=== PATIENT | female | born 1955 | race Caucasian/White ===

== ENCOUNTER 2018-08-04 13:14 | Inpatient (IN) ==
[2018-08-04] MEDS ORDERED: MethylPREDNISolone Sod Succinate Inj 125 MG/2 ML Vial IV.PUSH ONE (13:31)
--- NOTE | 2018-08-04 13:36 | ED ---
HPI General Chief Complaint: Neuro Symptoms/Deficit Stated Complaint: neuro symptoms x 2 days Time Seen by Provider: 08/04/18 13:25 Source: patient Mode of arrival: ambulatory Limitations: no limitations History of Present Illness HPI Narrative: Back pain after lifting food trays Complaint of chin numbness Complaint: Reports back pain Onset (ago): day(s) Duration: Reports constant Similar Symptoms Previously: Yes Location: Reports lumbar spine Severity: moderate Quality: Reports dull Radiation: Reports left leg Relieving factors: immobilization Exacerbating factors: movement Context: Reports while lifting Associated symptoms: Reports denies other symptoms; Denies weakness, numbness, difficulty walking, loss of sensation in lower extremities, increased urinary urgency and urinary incontinence Treatments prior to arrival: Reports other medications Related Data Home Medications Medication Instructions Recorded Confirmed prednisone 5 mg PO PER PKG DIR 08/04/18 08/04/18 Allergies Allergy/AdvReac Type Severity Reaction Status Date / Time No Known Allergies Allergy Verified 08/04/18 13:17 Review of Systems ROS: all other systems reviewed are negative Neurologic Denies vertigo, Denies dizziness, Denies headache(s) and Denies weakness PMFSH Medical History Medical History Vertigo (Acute) Surgical History Surgical History Hx of appendectomy (Acute) Social History Social History Substance History: Past History Second Hand Smoke Exposure: No Smoking Status: Never smoker How Often Do You Have a Drink Containing Alcohol: Monthly or less Recent Travel in [facility] within the Last 8 Weeks: No Recent Out of Country Travel within the Last 8 Weeks: No Exam Narrative Exam Narrative: NONTOXIC Nontender midline CTL EOMI NO JVD Difference in sensation right chin and left chin No gross abnormality face Normal sensory bilateral extremities NON LABORED RESPIRATIONS REGULAR RHYTHM SOFT NON TENDER, no pulsatile mass No rebound or guarding No CVA tenderness PELVIS STABLE FROM EXTREMITIES Tender left piriformis NO LOWER EXTREMITY EDEMA FACIAL SYMMETRY No pronator drift, equal buzzle buffer strength STEADY GAIT, CLEAR SENTENCES AAOX3 Course Reevaluation(s) Reevaluation #1: Updated patient diagnostic test, lytic lesions Family history of pancreatic/liver cancer WBC appropriate patient was taking steroids 1610 discussed with Scott High MD to admit/assume care No signs of acute airway compromise Follow-up oncology Time: 15:15 Initial Documented Vital Signs Temperature 99.1 F 08/04/18 13:17 Pulse Rate 96 H 08/04/18 13:17 Respiratory Rate 16 08/04/18 13:17 Blood Pressure 162/77 H 08/04/18 13:17 Pulse Oximetry 96 08/04/18 13:17 Last Documented Vital Signs Temperature 99.1 F 08/04/18 13:17 Pulse Rate 78 08/04/18 15:48 Respiratory Rate 18 08/04/18 15:48 Blood Pressure 176/84 H 08/04/18 15:48 Pulse Oximetry 98 08/04/18 15:48 Medical Decision Making MDM Narrative Medical Screen Exam Complete: Yes Emergency Medical Condition: Yes Lab Data Result diagrams: 08/04/18 13:40 08/04/18 13:40 Lab Results 08/04/18 08/04/18 Range/Units 13:40 13:40 CBC w Diff Auto diff final WBC 15.3 H (4.0-11.0) th/mm3 RBC 3.25 L (4.00-5.30) mil/mm3 Hgb 10.9 L (11.6-15.3) gm/dL Hct 32.0 L (35.0-46.0) % MCV 98.4 (80.0-100.0) fL MCH 33.6 (27.0-34.0) pg MCHC 34.1 (32.0-36.0) % RDW 13.0 (11.6-17.2) % Plt Count 276 (150-450) th/mm3 MPV 7.0 (7.0-11.0) fL Neut % (Auto) 77.2 H (16.0-70.0) % Lymph % (Auto) 14.8 (9.0-44.0) % [place] % (Auto) 7.5 (0.0-8.0) % Eos % (Auto) 0.1 (0.0-4.0) % Baso % (Auto) 0.4 (0.0-2.0) % Neut # (Auto) 11.8 H (1.8-7.7) th/mm3 Lymph # (Auto) 2.3 (1.0-4.8) th/mm3 [place] # (Auto) 1.1 H (0.0-0.9) th/mm3 Eos # (Auto) 0.0 (0.0-0.4) th/mm3 Baso # (Auto) 0.1 (0.0-0.2) th/mm3 WBC Differential . Differential Comment . Sodium 136 (136-145) meq/L Potassium 3.6 (3.5-5.1) meq/L Chloride 98 (98-107) meq/L Carbon Dioxide 31.3 (21.0-32.0) meq/L Anion Gap 7 (5-15) meq/L BUN 20 H (7-18) mg/dL Creatinine 1.10 H (0.50-1.00) mg/dL Estimated GFR 50 L (>89) mL/min Random Glucose 161 H (74-106) mg/dL Calcium 12.2 H* (8.5-10.1) mg/dL Calcium Adj for Albumin 12.2 H* (8.5-10.1) mg/dL Albumin 4.0 (3.4-5.0) g/dL Imaging Data Radiologist's impression: Lumbar Spine CT 08/04/18 13:32 CONCLUSION: 1. Widespread lytic bony destructive change in the lower thoracic spine, lumbar spine and sacrum and pelvis. There are associated soft tissue masses on the right side at L2 and S1 measuring up to 2.5 cm in diameter which may be impinging on the adjacent nerve roots. Head CT 08/04/18 13:37 CONCLUSION: 1. Numerous lytic calvarial lesions most characteristic of myeloma or metastatic disease. Larger lytic lesion in the right frontal bone is associated with a soft tissue mass measuring about 12 mm extending into the extra-axial space on the right but without significant mass effect. . . Discharge Plan Discharge Disposition Patient Disposition: ED Admit(ED Internal Use Only) Discharge Condition Condition: Stable Discharge Details Diagnosis: Metastatic cancer to bone, Hypercalcemia Physicians Team ED Provider: Dre Farmer Primary Care Provider: Primary Care Kaur Nova Rxs /Orders / Referrals /Forms Prescriptions: No Action prednisone 5 mg Tablets,Dose Pack 5 mg PO PER PKG DIR RF: 0 Discharge Interventions Interventions: Vital Signs Last Done: 08/04/18 15:48 Status ED Status: Pending Admission
[2018-08-04 13:55] LABS: Baso # (Auto) 0.1 th/mm3 (0.0-0.2); Baso % (Auto) 0.4 % (0.0-2.0); Eos % (Auto) 0.1 % (0.0-4.0); Hemoglobin 10.9 gm/dL (11.6-15.3); Lymph # (Auto) 2.3 th/mm3 (1.0-4.8); Lymph % (Auto) 14.8 % (9.0-44.0); Mean Corpuscular HGB Conc 34.1 % (32.0-36.0); Mean Corpuscular Hemoglobin 33.6 pg (27.0-34.0); Mean Corpuscular Volume 98.4 fL (80.0-100.0); Mono # (Auto) 1.1 th/mm3 (0.0-0.9); Mono % (Auto) 7.5 % (0.0-8.0); Neut # (Auto) 11.8 th/mm3 (1.8-7.7); Neut % (Auto) 77.2 % (16.0-70.0); Platelet Count 276 th/mm3 (150-450); Red Blood Count 3.25 mil/mm3 (4.00-5.30); White Blood Count 15.3 th/mm3 (4.0-11.0)
[2018-08-04 14:03] LABS: Potassium 3.6 meq/L (3.5-5.1)
[2018-08-04 14:12] LABS: Calcium 12.2 mg/dL (8.5-10.1); Carbon Dioxide 31.3 meq/L (21.0-32.0)
[2018-08-04] MEDS ORDERED: Furosemide 40 MG Tablet PO ONE (14:30)
[2018-08-04] MEDS ORDERED: Sod Chloride 0.9% Inj 1,000 ML IV.SIG SCH (14:30)
[2018-08-04 14:35] LABS: Calcium-Albumin Corrected 12.2 mg/dL (8.5-10.1)
--- NOTE | 2018-08-04 15:16 | CT ---
EXAM DATE: 08/04/2018 3:09 PM EST AGE/SEX: 63 years / Female INDICATIONS: Right chin and right leg numbness. CLINICAL DATA: This is the patient's initial encounter. Patient reports that signs and symptoms have been present for 2 days and indicates a pain score of 7/10. MEDICAL/SURGICAL HISTORY: None. None. RADIATION DOSE: 57.15 CTDI (mGy) COMPARISON: No prior exams available for comparison. TECHNIQUE: CT of the head without contrast. Using automated exposure control and adjustment of the mA and/or kV according to patient size, radiation dose was kept as low as reasonably achievable to ob tain optimal diagnostic quality images. DICOM format image data is available electronically for revi ew and comparison. FINDINGS: Cerebrum: The ventricles are normal for age. 2.4 cm lytic lesion in right frontal calvarium is assoc iated with a 12 mm extra-axial mass in the right frontal region. No other intracranial masses. Posterior Fossa: The cerebellum and brainstem are intact. The 4th ventricle is midline. The cerebe llopontine angle is unremarkable. Extracranial: The visualized portion of the orbits is intact. Skull: Innumerable lytic lesions in the calvarium. Differential diagnosis is most likely myeloma or metastatic bone disease.. CONCLUSION: 1. Numerous lytic calvarial lesions most characteristic of myeloma or metastatic disease. Larger lyt ic lesion in the right frontal bone is associated with a soft tissue mass measuring about 12 mm exten ding into the extra-axial space on the right but without significant mass effect. . . Electronically signed by: Dre Navarrete MD Board Certified Radiologist 08/04/2018 3:15 PM EST
--- NOTE | 2018-08-04 15:44 | CT ---
EXAM DATE: 08/04/2018 3:23 PM EST AGE/SEX: 63 years / Female INDICATIONS: Right chin and right leg numbness. CLINICAL DATA: This is the patient's initial encounter. Patient reports that signs and symptoms have been present for 2 days and indicates a pain score of 7/10. MEDICAL/SURGICAL HISTORY: None. None. RADIATION DOSE: 20.71 CTDI (mGy) COMPARISON: No prior exams available for comparison. TECHNIQUE: Contiguous axial images were acquired with a multirow detector CT scanner without contras t. Multiplanar reconstructions in the sagittal and coronal plane were also performed. Using automate d exposure control and adjustment of the mA and/or kV according to patient size, radiation dose was k ept as low as reasonably achievable to obtain optimal diagnostic quality images. DICOM format image data is available electronically for review and comparison. FINDINGS: There is widespread multifocal lytic destruction of bone in the lower thoracic and lumbar spine. On t he right side of L2 1 lytic mass is associated with a 2.5 cm soft tissue mass which results in right lateral recess and right foraminal stenosis probably impinging on the right L2 nerve root. Bony destr uction in the right sacral ala is associated with a 2.5 cm soft tissue mass which may be impinging on a right sacral nerve root. At this point no pathologic fractures seen. The lytic changes extending into the posterior elements n o discrete disc protrusions are identified. CONCLUSION: 1. Widespread lytic bony destructive change in the lower thoracic spine, lumbar spine and sacrum and pelvis. There are associated soft tissue masses on the right side at L2 and S1 measuring up to 2.5 c m in diameter which may be impinging on the adjacent nerve roots. Electronically signed by: Dre Navarrete MD Board Certified Radiologist 08/04/2018 3:43 PM EST
[2018-08-04] MEDS ORDERED: Acetaminophen 325 MG Tablet PO PRN (16:18)
[2018-08-04] MEDS ORDERED: Diatrizoate Meglum/Diatrizoate Sod Liq 9 ML UDC PO ONE (16:26)
[2018-08-04] MEDS ORDERED: Diatrizoate Meglum/Diatrizoate Sod Liq 9 ML UDC ONE (16:42)
[2018-08-04] MEDS: Sod Chloride 0.9% Inj 1,000 ML IV.CONT SCH (16:51)
--- NOTE | 2018-08-04 19:29 | P.HPIM ---
History of Present Illness Primary Care Physician: No Primary Care Physician Chief Complaint: Back Pain, Weakness History of Present Illness: Mrs. Singleton is a 63-year-old female. She came in the hospital secondary to back pain and weakness. She noticed back pain when she was lifting food trays. Lab work shows hypercalcemia. Imaging has been obtained of the back and the brain. She has evidence of metastatic disease to the lumbar spine and the brain. Neoplastic etiology is likely the cause for her hypercalcemia. Patient at baseline only has chronic vertigo. No other known medical problems. She does report that her father had liver cancer and her mother had pancreatic cancer. She has no past history of smoking. She did have some smoke exposure as a child because her parents smoked. She does report that she has drank alcohol heavily in the past. She is not been drinking alcohol since June 18, 2018. Before this she was drinking about 1 bottle of wine daily. When we discussed her bowel movements she reports that she has been suffering with constipation and harder stools and had not had this problem previously. This could represent colon masses in etiology. Further imaging is pending. No complaints of pain. No other complaints tonight. Inpatient Certification Inpatient Certification: I certify that the inpatient services were ordered in accordance with Medicare regulations governing the order. This includes certification that hospital inpatient services are reasonable and necessary and in the case of services not specified as inpatient-only under 42 CFR 419.22(n), that they are appropriately provided as inpatient services in accordance to with the 2-midnight benchmark under 43 CFR 412.3(e) Estimated Total Length of Stay (Days): 5 Plans for Post Hospital Care: Not yet determined Review of Systems Constitutional: No fevers, no chills no night sweats, fatigue, weakness Eyes: No eye pain, no blurry vision, no loss of vision ENT: No sore throat, no ear pain, no rhinorrhea Cardiovascular: No chest pain, no tachycardia, no palpitations, no syncope Respiratory: No wheezing, no cough, no shortness of breath Gastrointestinal: No abdominal pain, no black tarry stools, no bright red blood per rectum, no vomiting, no diarrhea, constipation Musculoskeletal: No joint pain, no muscle cramps, no stiffness, back pain Integumentary: No rash, no ulcers, no drainage Neurologic: No sensory loss, no loss of motor function, no dizziness Psychiatric: No behavioral changes, no hallucinations, no suicidal ideations PMFSH Medical History Medical History Vertigo (Acute) Surgical History Surgical History Hx of appendectomy (Acute) Family History Family History Father Liver cancer Mother Pancreatic cancer Social History Social History Substance History: No History of Abuse Second Hand Smoke Exposure: Yes Smoking Status: Never smoker How Often Do You Have a Drink Containing Alcohol: 4 or more times a week Recent Travel in [place] within the Last 8 Weeks: No Recent Out of Country Travel within the Last 8 Weeks: No Substance Abuse Detail Alcohol: Substance Use Status: Early Remission Route Used Substance Abuse: By Mouth Reason for Use: Calm Down Immunization History Tetanus Immunization: Unsure Hx Influenza Vaccine This Season: No Medications and Allergies Allergies Allergy/AdvReac Type Severity Reaction Status Date / Time No Known Allergies Allergy Verified 08/04/18 13:17 Home Medications Medication Instructions Recorded Confirmed Type prednisone 5 mg PO PER PKG DIR 08/04/18 08/04/18 History Active Medications: Active Medications Acetaminophen (Tylenol) 650 mg PO Q4H PRN PRN Reason: Temp > 100.4 Hydrocodone Bitart/Acetaminophen ([place] 5/325) 1 tab PO Q4H PRN PRN Reason: Pain 3 to 6 Hydrocodone Bitart/Acetaminophen ([place] 10/325) 1 tab PO Q4H PRN PRN Reason: Pain 7 to 10 Al Hydroxide/Mg Hydroxide (Milk Of Magnesia Liq) 30 ml PO Q12H PRN PRN Reason: Mild Constipation Sodium Chloride (Ns Inj) 1,000 mls @ 100 mls/hr IV.CONT .Q10H TREE Last Infusion: 08/04/18 17:40 Dose: 100 mls/hr Ondansetron HCl (Zofran Inj) 4 mg IV.PUSH Q6H PRN PRN Reason: NAUSEA OR VOMITING Sodium Chloride (Ns Flush) 2 ml IV.FLUSH BID TREE Sodium Chloride (Ns Flush) 2 ml IV.FLUSH PRN PRN PRN Reason: FLUSH AFTER USING IV ACCESS Physical Exam Vital signs: Vital Signs 08/04/18 13:17 08/04/18 14:10 08/04/18 14:47 Temperature 99.1 F Pulse Rate 96 H 80 76 Respiratory Rate 16 18 18 Blood Pressure 162/77 H 148/79 H 143/80 H Pulse Oximetry 96 98 95 08/04/18 15:48 08/04/18 17:40 Temperature Pulse Rate 78 81 Respiratory Rate 18 18 Blood Pressure 176/84 H 155/75 H Pulse Oximetry 98 96 Intake & Output 08/04/18 08/04/18 08/05/18 06:59 18:59 06:59 Intake Total 1280 / 1280 Balance 1280 / 1280 Weight 85.3 kg Intake: IV 1100 / 1100 NS Inj 1,000 ML @ 100 mls/hr IV 100 / 100 .CONT .Q10H TREE Rx#:[id number] NS Inj 1,000 ML @ 1000 mls/hr 1000 / 1000 IV.SIG BOLUS TREE Rx#:[id number] Oral 180 / 180 Narrative: GENERAL: NAD, A&Ox3 HEAD: Normocephalic. NECK: Supple, trachea midline. No lymphadenopathy. EYES: No scleral icterus. No injection or drainage. CARDIOVASCULAR: Regular rate and rhythm without murmurs, gallops, or rubs. RESPIRATORY: Breath sounds equal bilaterally. No accessory muscle use. GASTROINTESTINAL: Abdomen soft, non-tender, nondistended. MUSCULOSKELETAL: No cyanosis, or edema. SKIN: Warm and dry. NEURO: No focal neurological deficits. Results Labs CBC & Chem 7: 08/04/18 13:40 08/04/18 13:40 Imaging Impressions Lumbar Spine CT 08/04/18 13:32 CONCLUSION: 1. Widespread lytic bony destructive change in the lower thoracic spine, lumbar spine and sacrum and pelvis. There are associated soft tissue masses on the right side at L2 and S1 measuring up to 2.5 cm in diameter which may be impinging on the adjacent nerve roots. Head CT 08/04/18 13:37 CONCLUSION: 1. Numerous lytic calvarial lesions most characteristic of myeloma or metastatic disease. Larger lytic lesion in the right frontal bone is associated with a soft tissue mass measuring about 12 mm extending into the extra-axial space on the right but without significant mass effect. . . Caprini VTE Risk Assessment Caprini VTE Risk Assessment: No/Low Risk (score <= 1) Caprini Risk Assessment Model: Point Value = 1 Point Value = 2 Point Value = 3 Point Value = 5 Age 41-60 Minor surgery BMI > 25 kg/m2 Swollen legs Varicose veins or History of unexplained or recurrent spontaneous Oral contraceptives or hormone replacement Sepsis (< 1 month) Serious lung disease, including pneumonia (< 1 month) Abnormal pulmonary function Acute myocardial infarction Congestive heart failure (< 1 month) History of inflammatory bowel disease Medical patient at bed rest Age 61-74 Arthroscopic surgery Major open surgery (> 45 min) Laparoscopic surgery (> 45 min) Malignancy Confined to bed (> 72 hours) Immobilizing plaster cast Central venous access Age >= 75 History of VTE Family history of VTE Factor V Leiden Prothrombin [id number] Lupus anticoagulant Anticardiolipin antibodies Elevated serum homocysteine Heparin-induced thrombocytopenia Other congenital or acquired thrombophilia Stroke (< 1 month) Elective arthroplasty Hip, pelvis, or leg fracture Acute spinal cord injury (< 1 month) Prophylaxis Regimen: Total Risk Factor Score Risk Level Prophylaxis Regimen 0-1 Low Early ambulation 2 Moderate Order ONE of the following: *Sequential Compression Device (SCD) *Heparin 5000 units SQ BID 3-4 Higher Order ONE of the following medications: *Heparin 5000 units SQ TID *Enoxaparin/Lovenox 40 mg SQ daily (WT < 150 kg, CrCl > 30 mL/min) *Enoxaparin/Lovenox 30 mg SQ daily (WT < 150 kg, CrCl > 10-29 mL/min) *Enoxaparin/Lovenox 30 mg SQ BID (WT < 150 kg, CrCl > 30 mL/min) AND/OR *Sequential Compression Device (SCD) 5 or more Highest Order ONE of the following medications: *Heparin 5000 units SQ TID (Preferred with Epidurals) *Enoxaparin/Lovenox 40 mg SQ daily (WT < 150 kg, CrCl > 30 mL/min) *Enoxaparin/Lovenox 30 mg SQ daily (WT < 150 kg, CrCl > 10-29 mL/min) *Enoxaparin/Lovenox 30 mg SQ BID (WT < 150 kg, CrCl > 30 mL/min) AND *Sequential Compression Device (SCD) Assessment and Plan Plan 63-year-old female admitted secondary to new findings of what appears to be metastatic cancer Severe hypercalcemia May be of neoplastic etiology IV hydration Evaluate PTH Follow calcium levels Suspect metastatic brain cancer Suspect metastatic spine cancer Obtain CT scan of chest, abdomen, pelvis Oncology consult Seek options for tissue sample As needed pain treatments DVT prophylaxis SCDs H&P: Quality VTE Deep Vein Thrombosis/Pulmonary Embolism Present on Admission: No
--- NOTE | 2018-08-04 20:07 | CT ---
EXAM DATE: 08/04/2018 7:52 PM EST AGE/SEX: 63 years / Female INDICATIONS: Evaluate for metastatic disease. Abnormal prior CT done earlier today. CLINICAL DATA: This is the patient's initial encounter. Patient reports that signs and symptoms have been present for 1 day and indicates a pain score of 2/10. MEDICAL/SURGICAL HISTORY: None. Appendectomy. RADIATION DOSE: 11.97 CTDI (mGy) ; Combined studies COMPARISON: No prior exams available for comparison. TECHNIQUE: Multiple contiguous axial images were obtained through the chest during bolus infusion of 92 ml Omnipaque 350 (iohexol) nonionic water-soluble contrast as a single exam dose. Images were obtained in suspended respiration using multiple row detector helical technique. Using automated exp osure control and adjustment of the mA and/or kV according to patient size, radiation dose was kept a s low as reasonably achievable to obtain optimal diagnostic quality images. DICOM format image data is available electronically for review and comparison. FINDINGS: Lungs demonstrate some linear atelectasis or scarring at the bases. There is no mediastinal, hilar or axillary adenopathy. There is widespread bony lytic destructive change in the bony skeleton. Largest lesion in the thoraci c spine is at T10 on the right side with a soft tissue component measures up to 2.9 cm in diameter an d results in at least moderate canal stenosis and mild to moderate cord compression. There is a 2.4 c m soft tissue mass adjacent to a bony destructive lesion in the medial eighth rib with extrapleural m ass present. The distal metastatic lesions present in the sternum. There is a pathologic fracture of a lower right anterior rib. CONCLUSION: 1. Widespread bony metastatic disease or myeloma with a lytic lesion at T10 on the right side result ing in at least moderate canal stenosis and mild to moderate cord compression. 2. No adenopathy or suspicious lung mass identified. Electronically signed by: Dre Navarrete MD Board Certified Radiologist 08/04/2018 8:06 PM EST
--- NOTE | 2018-08-04 20:11 | CT ---
EXAM DATE: 08/04/2018 7:53 PM EST AGE/SEX: 63 years / Female INDICATIONS: Evaluate for metastatic disease. Abnormal prior CT done earlier today. CLINICAL DATA: This is the patient's initial encounter. Patient reports that signs and symptoms have been present for 1 day and indicates a pain score of 2/10. MEDICAL/SURGICAL HISTORY: None. Appendectomy. ORAL CONTRAST: Prescribed oral contrast ingested. RADIATION DOSE: 11.97 CTDI (mGy) ; Combined studies COMPARISON: No prior exams available for comparison. TECHNIQUE: Multiple contiguous axial images were obtained through the abdomen and pelvis following b olus infusion of 92 ml Omnipaque 350 (iohexol) nonionic water-soluble contrast as a cumulative dose for multiple exams. Prescribed oral contrast ingested. Using automated exposure control and adjustm ent of the mA and/or kV according to patient size, radiation dose was kept as low as reasonably achie vable to obtain optimal diagnostic quality images. DICOM format image data is available electronical ly for review and comparison. FINDINGS: There is widespread lytic metastatic disease in the lower thoracic spine, lumbar spine and also invol ving the and bony pelvis. Soft tissue masses in the right sided L2 and S1 may be impinging on the adj acent nerve roots. See lumbar spine CT. Mild fatty liver. No discrete mass identified in the liver, spleen, adrenals, kidneys or pancreas. No calcified gallstones or biliary ductal dilatation. There is no free fluid. No bowel obstruction. No adenopathy. Mild constipation. Lytic lesion also not ed in left femoral head. CONCLUSION: 1. Widespread lytic bone destruction in the skeleton as above characteristic of metastatic disease o r myeloma. Associated soft tissue masses on the right side at L2 and S1 may be impinging on the adjac ent nerve roots. 2. No visceral mass identified within the abdomen and pelvis. Mild constipation. No abdominal or pel hui adenopathy identified. Electronically signed by: Dre Navarrete MD Board Certified Radiologist 08/04/2018 8:09 PM EST
[2018-08-05] MEDS: Sod Chloride 0.9% Inj 1,000 ML IV.CONT SCH ×3 (04:00→23:59)
[2018-08-05 06:30] LABS: Baso % (Auto) 0.1 % (0.0-2.0); Eos % (Auto) 0.2 % (0.0-4.0); Hematocrit 28.1 % (35.0-46.0); Hemoglobin 9.6 gm/dL (11.6-15.3); Lymph # (Auto) 1.8 th/mm3 (1.0-4.8); Lymph % (Auto) 15.8 % (9.0-44.0); Mean Corpuscular HGB Conc 34.1 % (32.0-36.0); Mean Corpuscular Hemoglobin 34.1 pg (27.0-34.0); Mean Corpuscular Volume 99.9 fL (80.0-100.0); Mono % (Auto) 8.8 % (0.0-8.0); Neut # (Auto) 8.7 th/mm3 (1.8-7.7); Neut % (Auto) 75.1 % (16.0-70.0); Platelet Count 213 th/mm3 (150-450); Red Blood Count 2.81 mil/mm3 (4.00-5.30); Red Cell Distribution Width 12.9 % (11.6-17.2); White Blood Count 11.5 th/mm3 (4.0-11.0)
[2018-08-05 07:07] LABS: Alanine Aminotransferase 15 U/L (10-53); Alkaline Phosphatase 96 U/L (45-117); Anion Gap 5 meq/L (5-15); Aspartate Aminotransferase 18 U/L (15-37); Blood Urea Nitrogen 15 mg/dL (7-18); Calcium 11.2 mg/dL (8.5-10.1); Carbon Dioxide 31.3 meq/L (21.0-32.0); Chloride 104 meq/L (98-107); Glomerular Filtration Rate 76 mL/min (>89); Glucose,Random 111 mg/dL (74-106); Magnesium 1.8 mg/dL (1.5-2.5); Phosphorus 4.7 mg/dL (2.5-4.9); Potassium 3.8 meq/L (3.5-5.1); Sodium 140 meq/L (136-145); Total Protein 6.6 g/dL (6.4-8.2)
[2018-08-05 07:09] LABS: Albumin 3.4 g/dL (3.4-5.0)
[2018-08-05 08:54] LABS: Kappa Lambda Ratio 0.93 (1.57-3.93)
--- NOTE | 2018-08-05 08:55 | P.CON ---
History of Present Illness Service: Hematology/oncology. Consult date: 08/05/18 Requesting Physician: Jimi High Reason for Consult: Bony metastases. Hypercalcemia. Primary Care Provider: No Primary Care Physician Chief Complaint: Back Pain, Weakness History of Present Illness: Ms. Singleton is a very pleasant 63-year-old female, she is originally from [place] but has lived in the [place] for the past 35 years. 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 The patient notes experiencing lower back pain which was different from previous back pain she had experienced. She reports the pain persisted and felt as if it was "ripping" in nature. She sought out a massage therapist as well as chiropractor with whom she underwent multiple treatment sessions. Her pain did not relieve. She reports that the pain subsequently began to travel up and down her back and along her ribs and she also began to experience abdominal pain. She presented to the hospital over this past weekend because she felt numbness along the right lower corner of her lip, she suspect that she was having a stroke. Upon presentation to the emergency department at [facility] she underwent lumbar spine CT imaging which revealed multiple lytic/destructive lesions involving her lumbar and sacral spine. She also underwent CT imaging of the chest, abdomen and pelvis as well as a CT scan of the head. She was found to have no evidence of visceral solid tumor involvement but was found to have extensive bony metastatic disease involving lytic lesions in the calvarium. Additional metabolic abnormalities include hypercalcemia, for this she received IV fluid hydration with normal saline with improvement in the hypercalcemia. The patient tells me she has no previous diagnoses of malignancy. She does admit to not following with with physicians for routine health maintenance. She is on no outpatient medications. Review of Systems Constitutional: Reports body ache(s), Denies anorexia, Denies fatigue, Denies fever(s), Denies headache(s), Denies lack of energy, Denies malaise, Denies night sweats, Denies weight gain, Denies weight loss Eyes: Denies blind spots, Denies change in vision, Denies requires corrective lenses Ears, Nose, Mouth, and Throat: Denies difficulty swallowing, Denies dry mouth, Denies hearing loss, Denies hoarseness, Denies nasal obstruction, Denies nasal trauma, Denies neck lump, Denies neck pain, Denies throat swelling, Denies tongue swelling Cardiovascular: Denies chest pain, Denies leg sores, Denies leg swelling, Denies shortness of breath causing sudden awakening, Denies slow heart rate Respiratory: Denies change in phlegm color, Denies cough, Denies shortness of breath, Denies wheezing Gastrointestinal: Denies abdominal pain, Denies black, tarry stools, Denies heartburn, Denies pain with swallowing, Denies vomiting Genitourinary: Reports absent period, Denies abnormal periods Musculoskeletal: Reports back pain, Denies muscle cramps, Denies neck pain, Denies radiating pain into limb, Denies stiffness Skin/Breast: Denies nipple discharge, Denies sensitivity to light, Denies rash, Denies sores, Denies stretch muñoz, Denies wounds Neurologic: Denies abnormal hearing, Denies abnormal speech, Denies burning sensations, Denies confusion, Denies weakness Comments: Reports numbness on the right lower quadrant of the lip. Psychiatric: Denies anxiety, Denies confusion Endocrine: Denies cold intolerance Hematologic/Lymphatic: Denies easy bleeding Allergic/Immunologic: Denies GI upset with certain foods PMFSH - History History Provided By: Patient - Medical History Medical History: Medical History (Last Reviewed 08/05/18 @ 08:51 by Curtis Marks MD) Vertigo - Surgical History Surgical History: Surgical History (Last Reviewed 08/05/18 @ 08:50 by Curtis Marks MD) Hx of appendectomy - Family History Family History: Family History (Last Reviewed 08/05/18 @ 08:50 by Curtis Marks MD) Father Liver cancer Mother Pancreatic cancer - Social History I have reviewed the patient's Social History: Yes - Tobacco History Second Hand Smoke Exposure: Yes Tobacco Use In Past 30 Days: No Smoking Status: Never smoker - Alcohol History How Often Do You Have a Drink Containing Alcohol: 4 or more times a week - Substance Use History Substance History: No History of Abuse - Substance Use Type Alcohol Status: Early Remission Route Used: By Mouth Reason for Use: Calm Down - Travel History Recent Travel in the [place] Within the Last 8 Weeks: No Recent Travel Out of the Country Within the Last 8 Weeks: No - Immunization History Tetanus Immunization: Unsure Hx Influenza Vaccine This Season: No Medications and Allergies Active Medications: Active Medications Acetaminophen (Tylenol) 650 mg PO Q4H PRN PRN Reason: Temp > 100.4 Hydrocodone Bitart/Acetaminophen (Milo 5/325) 1 tab PO Q4H PRN PRN Reason: Pain 3 to 6 Hydrocodone Bitart/Acetaminophen (Milo 10/325) 1 tab PO Q4H PRN PRN Reason: Pain 7 to 10 Last Admin: 08/05/18 08:14 Dose: 1 tab Al Hydroxide/Mg Hydroxide (Milk Of Osiris Liisrael) 30 ml PO Q12H PRN PRN Reason: Mild Constipation Sodium Chloride (Ns Inj) 1,000 mls @ 100 mls/hr IV.CONT .Q10H TREE Last Admin: 08/05/18 04:00 Dose: 100 mls/hr Ondansetron HCl (Zofran Inj) 4 mg IV.PUSH Q6H PRN PRN Reason: NAUSEA OR VOMITING Sodium Chloride (Ns Flush) 2 ml IV.FLUSH BID TREE Last Admin: 08/05/18 08:17 Dose: Not Given Sodium Chloride (Ns Flush) 2 ml IV.FLUSH PRN PRN PRN Reason: FLUSH AFTER USING IV ACCESS Allergies Allergy/AdvReac Type Severity Reaction Status Date / Time No Known Allergies Allergy Verified 08/04/18 13:17 Home Medications Medication Instructions Recorded Confirmed Type prednisone 5 mg PO PER PKG DIR 08/04/18 08/04/18 History Physical Exam Vital signs: Vital Signs 08/04/18 13:17 08/04/18 14:10 08/04/18 14:47 Temperature 99.1 F Pulse Rate 96 H 80 76 Respiratory Rate 16 18 18 Blood Pressure 162/77 H 148/79 H 143/80 H Pulse Oximetry 96 98 95 08/04/18 15:48 08/04/18 17:40 08/04/18 20:00 Temperature 98.4 F Pulse Rate 78 81 81 Respiratory Rate 18 18 16 Blood Pressure 176/84 H 155/75 H 160/77 H Pulse Oximetry 98 96 97 08/04/18 20:55 08/05/18 00:00 08/05/18 04:00 Temperature 97.1 F L 97.0 F L Pulse Rate 88 70 70 Respiratory Rate 16 16 Blood Pressure 99/55 L 108/57 L Pulse Oximetry 93 L 96 Intake & Output 02/08/05/18 08/05/18 18:59 06:59 18:59 Intake Total 1280 / 1280 1200 / 1200 Balance 1280 / 1280 1200 / 1200 Weight 85.3 kg 85.3 kg Intake: IV 1100 / 1100 1000 / 1000 NS Inj 1,000 ML @ 100 mls/hr IV 100 / 100 1000 / 1000 .CONT .Q10H TREE Rx#:[id number] NS Inj 1,000 ML @ 1000 mls/hr 1000 / 1000 IV.SIG BOLUS TREE Rx#:[id number] Oral 180 / 180 Oral Supplement 200 / 200 Other: # Voids 2 Weight On Admission 85.3 kg Narrative: General: Patient is a middle-aged female, she is a medium height moderate build , she is sitting up in bed having breakfast. She appears to be no acute distress she has a pleasant disposition. HEENT: Head atraumatic normocephalic, conjunctivae are non-pale sclerae anicteric, EOMI, PERRLA. Oral exam: No pharyngeal erythema neck exam no palpable cervical supraglottic lymphadenopathy. Respiratory exam: Good air movement bilaterally not breath sounds. Cardiac exam: Regular rate and rhythm, S1-S2 no obvious murmurs rubs gallops. Breast examination: Performed in the presence of a female nurse hydraulic operator: No skin changes involving either breasts, no underlying masses, no axilla lymphadenopathy on either side. Abdominal exam: Protuberant belly, soft, nontender, nondistended no palpable organ enlargement. Extremities: No pretibial edema no calf tenderness. [employer]: No focal sensorimotor deficits. Motor strength 5 x 5 the lower extremities without numbness. Upper extremities 5 x 5 motor strength bilaterally without numbness. Skin: Nonfocal examination. Psychiatric: Awake, alert, oriented x3. Pleasant disposition and cooperative. Results - Labs CBC & Chem 7: 08/05/18 05:35 08/05/18 05:35 Labs: Laboratory Results - last 24 hr 08/04/18 08/04/18 08/04/18 13:40 13:40 16:48 CBC w Diff Auto diff final WBC 15.3 H RBC 3.25 L Hgb 10.9 L Hct 32.0 L MCV 98.4 MCH 33.6 MCHC 34.1 RDW 13.0 Plt Count 276 MPV 7.0 Neut % (Auto) 77.2 H Lymph % (Auto) 14.8 Benzie % (Auto) 7.5 Eos % (Auto) 0.1 Baso % (Auto) 0.4 Neut # (Auto) 11.8 H Lymph # (Auto) 2.3 Benzie # (Auto) 1.1 H Eos # (Auto) 0.0 Baso # (Auto) 0.1 WBC Differential . Differential Comment . Sodium 136 Potassium 3.6 Chloride 98 Carbon Dioxide 31.3 Anion Gap 7 BUN 20 H Creatinine 1.10 H Estimated GFR 50 L Random Glucose 161 H Calcium 12.2 H* Calcium Adj for Albumin 12.2 H* Phosphorus Magnesium Total Bilirubin AST ALT Alkaline Phosphatase Total Protein Albumin 4.0 PTH Intact 13.2 08/05/18 08/05/18 05:35 05:35 CBC w Diff Auto diff final WBC 11.5 H RBC 2.81 L Hgb 9.6 L Hct 28.1 L MCV 99.9 MCH 34.1 H MCHC 34.1 RDW 12.9 Plt Count 213 MPV 7.0 Neut % (Auto) 75.1 H Lymph % (Auto) 15.8 Benzie % (Auto) 8.8 H Eos % (Auto) 0.2 Baso % (Auto) 0.1 Neut # (Auto) 8.7 H Lymph # (Auto) 1.8 Benzie # (Auto) 1.0 H Eos # (Auto) 0.0 Baso # (Auto) 0.0 WBC Differential . Differential Comment . Sodium 140 Potassium 3.8 Chloride 104 Carbon Dioxide 31.3 Anion Gap 5 BUN 15 Creatinine 0.77 Estimated GFR 76 L Random Glucose 111 H Calcium 11.2 H D Calcium Adj for Albumin Phosphorus 4.7 Magnesium 1.8 Total Bilirubin 0.2 AST 18 ALT 15 Alkaline Phosphatase 96 Total Protein 6.6 Albumin 3.4 D PTH Intact - Imaging Impressions Chest CT 08/04/18 00:00 CONCLUSION: 1. Widespread bony metastatic disease or myeloma with a lytic lesion at T10 on the right side resulting in at least moderate canal stenosis and mild to moderate cord compression. 2. No adenopathy or suspicious lung mass identified. Lumbar Spine CT 08/04/18 13:32 CONCLUSION: 1. Widespread lytic bony destructive change in the lower thoracic spine, lumbar spine and sacrum and pelvis. There are associated soft tissue masses on the right side at L2 and S1 measuring up to 2.5 cm in diameter which may be impinging on the adjacent nerve roots. Head CT 08/04/18 13:37 CONCLUSION: 1. Numerous lytic calvarial lesions most characteristic of myeloma or metastatic disease. Larger lytic lesion in the right frontal bone is associated with a soft tissue mass measuring about 12 mm extending into the extra-axial space on the right but without significant mass effect. . . Abdomen/Pelvis CT 08/04/18 17:45 CONCLUSION: 1. Widespread lytic bone destruction in the skeleton as above characteristic of metastatic disease or myeloma. Associated soft tissue masses on the right side at L2 and S1 may be impinging on the adjacent nerve roots. 2. No visceral mass identified within the abdomen and pelvis. Mild constipation. No abdominal or pelvic adenopathy identified. Assessment and Plan - Plan Ms. Singleton is a very pleasant 63-year-old female who presents the hospital with persistent back pain which has been multifocal for the past [address] imaging indicates multiple lytic lesions involving the lumbar, sacral, thoracic spine as well as the calvarium. CT imaging of the thorax and abdomen reveals no visceral abnormalities to suggest a primary cell tumor. Though she has extensive vertebral body metastases she has no evidence of cord compression at this time. Her motor strength in the lower extremities is 5 x 5 bilaterally and 5 x 5 motor strength in the upper extremities. Additionally, she was found to have hypercalcemia presumably hypercalcemia of malignancy. I did review the CT imaging, I discussed the findings with the patient and explained to the patient that I am concerned about her having a primary malignancy such as multiple myeloma. Recommendations: 1. Request CT-guided biopsy of 1 of the manufacturers representative lesions; she has a posterior lower rib lesion associate with significant soft tissue mass. 2. Request coags. 3. Obtain serum protein electro pheresis, serum immunofixation and quantitative immunoglobulins. 4. Obtain LDH level. 5. For hypercalcemia: Continue IV fluid hydration. She may require zoledronic acid infusion as well. Oncology will follow with you. Thank you for this consultation. Case discussed with the patient's nurse. Primary attending Dr. High and the patient.
[2018-08-05 09:59] LABS: Prothrombin Time 10.1 sec (9.8-11.6)
[2018-08-05 10:44] LABS: Activated Partial Thrombo Time 20.8 sec (23.4-31.7)
--- NOTE | 2018-08-05 11:47 | P.PNIM ---
Subjective Interval history: No acute changes overnight. Pain controlled well with [place]. Calcium level has improved with IV hydration. Possible bone marrow biopsy tomorrow. Physical Exam Vital signs: Vital Signs 08/04/18 13:17 08/04/18 14:10 08/04/18 14:47 Temperature 99.1 F Pulse Rate 96 H 80 76 Respiratory Rate 16 18 18 Blood Pressure 162/77 H 148/79 H 143/80 H Pulse Oximetry 96 98 95 08/04/18 15:48 08/04/18 17:40 08/04/18 20:00 Temperature 98.4 F Pulse Rate 78 81 81 Respiratory Rate 18 18 16 Blood Pressure 176/84 H 155/75 H 160/77 H Pulse Oximetry 98 96 97 08/04/18 20:55 08/05/18 00:00 08/05/18 04:00 Temperature 97.1 F L 97.0 F L Pulse Rate 88 70 70 Respiratory Rate 16 16 Blood Pressure 99/55 L 108/57 L Pulse Oximetry 93 L 96 08/05/18 08:00 Temperature 97.8 F Pulse Rate 78 Respiratory Rate 20 Blood Pressure 143/80 H Pulse Oximetry 96 Intake & Output 08/04/18 08/05/18 08/05/18 18:59 06:59 18:59 Intake Total 1280 / 1280 1200 / 1200 Balance 1280 / 1280 1200 / 1200 Weight 85.3 kg 85.3 kg Intake: IV 1100 / 1100 1000 / 1000 NS Inj 1,000 ML @ 100 mls/hr IV 100 / 100 1000 / 1000 .CONT .Q10H TREE Rx#:[id number] NS Inj 1,000 ML @ 1000 mls/hr 1000 / 1000 IV.SIG BOLUS TREE Rx#:[id number] Oral 180 / 180 Oral Supplement 200 / 200 Other: # Voids 2 Weight On Admission 85.3 kg Narrative: GENERAL: NAD, A&Ox3 HEAD: Normocephalic. NECK: Supple, trachea midline. No lymphadenopathy. EYES: No scleral icterus. No injection or drainage. CARDIOVASCULAR: Regular rate and rhythm without murmurs, gallops, or rubs. RESPIRATORY: Breath sounds equal bilaterally. No accessory muscle use. GASTROINTESTINAL: Abdomen soft, non-tender, nondistended. MUSCULOSKELETAL: No cyanosis, or edema. SKIN: Warm and dry. NEURO: No focal neurological deficits. Results Labs CBC & Chem 7: 08/05/18 05:35 08/05/18 05:35 Imaging Imaging: Impressions Chest CT 08/04/18 00:00 CONCLUSION: 1. Widespread bony metastatic disease or myeloma with a lytic lesion at T10 on the right side resulting in at least moderate canal stenosis and mild to moderate cord compression. 2. No adenopathy or suspicious lung mass identified. Lumbar Spine CT 08/04/18 13:32 CONCLUSION: 1. Widespread lytic bony destructive change in the lower thoracic spine, lumbar spine and sacrum and pelvis. There are associated soft tissue masses on the right side at L2 and S1 measuring up to 2.5 cm in diameter which may be impinging on the adjacent nerve roots. Head CT 08/04/18 13:37 CONCLUSION: 1. Numerous lytic calvarial lesions most characteristic of myeloma or metastatic disease. Larger lytic lesion in the right frontal bone is associated with a soft tissue mass measuring about 12 mm extending into the extra-axial space on the right but without significant mass effect. . . Abdomen/Pelvis CT 08/04/18 17:45 CONCLUSION: 1. Widespread lytic bone destruction in the skeleton as above characteristic of metastatic disease or myeloma. Associated soft tissue masses on the right side at L2 and S1 may be impinging on the adjacent nerve roots. 2. No visceral mass identified within the abdomen and pelvis. Mild constipation. No abdominal or pelvic adenopathy identified. Assessment and Plan Plan 63-year-old female admitted secondary to new findings of what appears to be metastatic cancer Continue pain control. Continue monitoring calcium level. Continue IV hydration. Plan for discontinuation of IV fluids with monitoring once calcium levels stabilize. Severe hypercalcemia May be of neoplastic etiology IV hydration PTH is within normal limits Follow calcium levels Suspect metastatic disease at brain Suspect metastatic disease at spine CT scan of chest, abdomen, pelvis shows further spinal involvement, no thorax/ abdomen/pelvis space masses identified Oncology consult Plan for bone biopsy for tissue sample As needed pain treatments DVT prophylaxis SCDs Progress Note: Quality VTE Deep Vein Thrombosis/Pulmonary Embolism Present on Admission: No
[2018-08-05] MEDS ORDERED: ALPRAZolam 0.5 MG Tablet PO ONE (22:12)
[2018-08-06 06:21] LABS: Baso % (Auto) 0.3 % (0.0-2.0); Eos # (Auto) 0.1 th/mm3 (0.0-0.4); Eos % (Auto) 0.7 % (0.0-4.0); Hematocrit 27.9 % (35.0-46.0); Hemoglobin 9.2 gm/dL (11.6-15.3); Lymph # (Auto) 2.9 th/mm3 (1.0-4.8); Lymph % (Auto) 29.7 % (9.0-44.0); Mean Corpuscular HGB Conc 33.2 % (32.0-36.0); Mean Corpuscular Hemoglobin 33.1 pg (27.0-34.0); Mean Corpuscular Volume 99.8 fL (80.0-100.0); Mean Platelet Volume 6.8 fL (7.0-11.0); Mono # (Auto) 0.8 th/mm3 (0.0-0.9); Mono % (Auto) 8.6 % (0.0-8.0); Neut % (Auto) 60.7 % (16.0-70.0); Platelet Count 215 th/mm3 (150-450); Red Blood Count 2.79 mil/mm3 (4.00-5.30); Red Cell Distribution Width 13.1 % (11.6-17.2); White Blood Count 9.8 th/mm3 (4.0-11.0)
[2018-08-06 06:34] LABS: Chloride 106 meq/L (98-107); Potassium 3.3 meq/L (3.5-5.1); Sodium 142 meq/L (136-145)
[2018-08-06 06:44] LABS: Anion Gap 7 meq/L (5-15); Calcium 11.1 mg/dL (8.5-10.1); Carbon Dioxide 28.8 meq/L (21.0-32.0)
[2018-08-06 06:45] LABS: Blood Urea Nitrogen 12 mg/dL (7-18); Glucose,Random 77 mg/dL (74-106)
[2018-08-06 06:47] LABS: Aspartate Aminotransferase 19 U/L (15-37)
[2018-08-06 06:48] LABS: Alanine Aminotransferase 14 U/L (10-53); Glomerular Filtration Rate 80 mL/min (>89)
[2018-08-06 06:49] LABS: Total Protein 5.8 g/dL (6.4-8.2)
[2018-08-06 06:50] LABS: Alkaline Phosphatase 87 U/L (45-117)
[2018-08-06] MEDS: Sod Chloride 0.9% Inj 1,000 ML IV.CONT SCH ×2 (10:19→18:47)
[2018-08-06] MEDS ORDERED: fentaNYL Citrate Inj 100 MCG/2 ML Ampul IV.PUSH ONE (11:00)
--- NOTE | 2018-08-06 11:29 | P.RAD ---
Post CT Procedure Prog Note - Pre Procedure Diagnosis (1) Metastatic cancer to bone - Post Procedure Diagnosis (1) Metastatic cancer to bone - Procedure Information Procedure Date: 08/06/18 Supervising Radiologist: Anurag Graham MD Anesthesia: Conscious Sedation - Plan of Activity Patient to Unit: Nursing Unit Patient condition: Good See PACS Report for procedural detail/treatment. Biopsy CT right Bone Specimen: Core Biopsy
--- NOTE | 2018-08-06 11:42 | P.PNIM ---
Subjective Interval history: Follow-up severe hypercalcemia/suspected metastasis disease to the brain and spine August 06, 2018patient seen and examined still complains of low back pain as well as shoulder pain. Currently n.p.o. pending bone marrow biopsy. Calcium down to 11.1. Physical Exam Vital signs: Vital Signs 08/05/18 12:00 08/05/18 16:00 08/05/18 20:00 Temperature 97.1 F L 97.8 F 97.8 F Pulse Rate 88 88 70 Respiratory Rate 20 20 18 Blood Pressure 117/69 140/70 130/62 Pulse Oximetry 96 93 L 92 L 08/06/18 00:00 08/06/18 08:00 08/06/18 08:33 Temperature 98 F 96.4 F L Pulse Rate 87 72 95 H Respiratory Rate 18 18 Blood Pressure 153/69 H 139/79 Pulse Oximetry 98 92 L Intake & Output 08/05/18 08/06/18 08/06/18 18:59 06:59 18:59 Intake Total 1430 / 1430 1480 / 1480 1000 / 1000 Balance 1430 / 1430 1480 / 1480 1000 / 1000 Weight 60.4 kg Intake: IV 1000 / 1000 1000 / 1000 1000 / 1000 NS Inj 1,000 ML @ 100 mls/hr IV 1000 / 1000 1000 / 1000 1000 / 1000 .CONT .Q10H TREE Rx#:[id number] Oral 430 / 430 480 / 480 Other: # Voids 2 4 Narrative: GENERAL: NAD, A&Ox3 HEAD: Normocephalic. NECK: Supple, trachea midline. No lymphadenopathy. EYES: No scleral icterus. No injection or drainage. CARDIOVASCULAR: Regular rate and rhythm without murmurs, gallops, or rubs. RESPIRATORY: Breath sounds equal bilaterally. No accessory muscle use. GASTROINTESTINAL: Abdomen soft, non-tender, nondistended. MUSCULOSKELETAL: No cyanosis, or edema. SKIN: Warm and dry. NEURO: No focal neurological deficits. Results Labs CBC & Chem 7: 08/06/18 05:50 08/06/18 05:50 Assessment and Plan Plan 63-year-old female with Severe hypercalcemia May be of neoplastic etiology Monitor calcium level and continue with IV hydration PTH is within normal limits Appreciate input from pulmonary medicine Suspect metastatic disease at brain Suspect metastatic disease at spine CT scan of chest, abdomen, pelvis shows further spinal involvement, no thorax/ abdomen/pelvis space masses identified Plan for bone marrow biopsy today August 06, 2018 Appreciate input from oncology As needed pain treatments DVT prophylaxis SCDs Progress Note: Quality VTE Deep Vein Thrombosis/Pulmonary Embolism Present on Admission: No
[2018-08-06] MEDS ORDERED: Lidocaine 1%/Epinephrine 1:100,000 Inj 20 ML Vial INFILTRATN ONE (12:00)
--- NOTE | 2018-08-06 13:22 | CT ---
EXAM DATE: 08/06/2018 11:39 AM EST AGE/SEX: 63 years / Female INDICATIONS: Right posterior rib soft tissue mass. CLINICAL DATA: This is the patient's initial encounter. Patient reports that signs and symptoms have been present for 1 day and indicates a pain score of 0/10. MEDICAL/SURGICAL HISTORY: None. None. COMPARISON: No prior exams available for comparison. BIOPSY SITE: Right soft tissue rib MEDICATION(S): 2 mg midazolam (Versed) IV 200mcg fentanyl (Sublimaze) IV DEVICE(S): 18 gauge Temno needle . . PROCEDURE: CT guided Right soft tissue rib biopsy Prior to the procedure informed consent was obtained. Any appropriate prior imaging studies were rev iewed. Using automated exposure control and adjustment of the mA and/or kV according to patient size, radiat ion dose was kept as low as reasonably achievable to obtain optimal diagnostic quality images. DICOM format image data is available electronically for review and comparison. The site was prepped in a sterile fashion. Full sterile technique was used, including cap, mask, stacey rile gloves and gown and a large sterile sheet. Hand hygiene and 2% chlorhexidine and/or betadine/al cohol prep was utilized per protocol for cutaneous antisepsis. The skin and subcutaneous tissues wer e infiltrated with local anesthetic solution. With CT guidance the previously identified target was localized. Biopsy was performed using the presc ribed needle as above. Adequate hemostasis was obtained with compression at the puncture site. Follow-up CT scan reveals no hemorrhage. The patient tolerated the procedure well and there were no complications. The patient was returned to the Radiology Outpatient Unit in stable condition. CONCLUSION: 1. Uncomplicated CT guided biopsy. Electronically signed by: Anurag Graham MD Board Certified Radiologist 08/06/2018 1:20 PM EST
--- NOTE | 2018-08-06 18:07 | P.PNONC ---
Subjective Interval history: Complaint of back pain. She needs another dose of pain medicine. She tolerated her bone biopsy well. Objective Vital Signs/Intake & Output: Vital Signs 08/05/18 20:00 08/06/18 00:00 08/06/18 08:00 Temperature 97.8 F 98 F Pulse Rate 70 87 72 Respiratory Rate 18 18 Blood Pressure 130/62 153/69 H Pulse Oximetry 92 L 98 08/06/18 08:33 08/06/18 11:45 08/06/18 12:00 Temperature 96.4 F L 97.7 F Pulse Rate 95 H 83 82 Respiratory Rate 18 14 15 Blood Pressure 139/79 140/69 123/63 Pulse Oximetry 92 L 95 100 08/06/18 12:30 08/06/18 13:00 08/06/18 17:09 Temperature 97.8 F 98.5 F Pulse Rate 80 80 87 Respiratory Rate 15 16 16 Blood Pressure 117/60 120/69 129/60 Pulse Oximetry 95 94 L 94 L Intake & Output 08/05/18 08/06/18 08/06/18 18:59 06:59 18:59 Intake Total 1430 / 1430 1480 / 1480 1000 / 1000 Balance 1430 / 1430 1480 / 1480 1000 / 1000 Weight 60.4 kg Intake: IV 1000 / 1000 1000 / 1000 1000 / 1000 NS Inj 1,000 ML @ 100 mls/hr IV 1000 / 1000 1000 / 1000 1000 / 1000 .CONT .Q10H [facility] Rx#:[id number] Oral 430 / 430 480 / 480 Other: # Voids 2 4 Result Diagrams: 08/06/18 05:50 08/06/18 05:50 Laboratory Results: Laboratory Results - last 24 hr 08/06/18 08/06/18 05:50 05:50 CBC w Diff Auto diff final WBC 9.8 RBC 2.79 L Hgb 9.2 L Hct 27.9 L MCV 99.8 MCH 33.1 MCHC 33.2 RDW 13.1 Plt Count 215 MPV 6.8 L Neut % (Auto) 60.7 Lymph % (Auto) 29.7 [place] % (Auto) 8.6 H Eos % (Auto) 0.7 Baso % (Auto) 0.3 Neut # (Auto) 6.0 Lymph # (Auto) 2.9 [place] # (Auto) 0.8 Eos # (Auto) 0.1 Baso # (Auto) 0.0 WBC Differential . Differential Comment . Sodium 142 Potassium 3.3 L Chloride 106 Carbon Dioxide 28.8 Anion Gap 7 BUN 12 Creatinine 0.74 Estimated GFR 80 L Random Glucose 77 Calcium 11.1 H Total Bilirubin 0.4 AST 19 ALT 14 Alkaline Phosphatase 87 Total Protein 5.8 L D Albumin 3.0 L Imaging Studies: Impressions Soft Tissue Biopsy 08/06/18 10:00 CONCLUSION: 1. Uncomplicated CT guided biopsy. Medications: Active Medications Generic Name Dose Route Start Last Admin Trade Name Freq PRN Reason Stop Dose Admin Hydrocodone Bitart/Acetaminophen 1 tab 08/04/18 16:18 08/06/18 14:04 [place] 5/325 PO 1 tab Q4H PRN Administration Pain 3 to 6 Hydrocodone Bitart/Acetaminophen 1 tab 08/04/18 16:18 08/06/18 18:00 [place] 10/325 PO 1 tab Q4H PRN Administration Pain 7 to 10 Sodium Chloride 1,000 mls @ 100 mls/hr 08/04/18 16:30 08/06/18 10:19 Ns Inj IV.CONT 100 mls/hr .Q10H [facility] Administration Sodium Chloride 2 ml 08/04/18 21:00 08/06/18 08:09 Ns Flush IV.FLUSH Not Given BID [facility] Objective Remarks: GENERAL: Slender, well-developed patient. SKIN: Warm and dry. HEAD: Normocephalic. EYES: No scleral icterus. No injection or drainage. NECK: Supple, trachea midline. No JVD or lymphadenopathy. LYMPHATIC: No adenopathy. CARDIOVASCULAR: Regular rate and rhythm without murmurs. RESPIRATORY: Breath sounds equal bilaterally. No accessory muscle use. GASTROINTESTINAL: Abdomen soft, non-tender, nondistended. EXTREMITIES: No cyanosis, or edema. MUSCULOSKELETAL: Adequate muscle tone. Assessment/Plan (1) Metastatic cancer to bone Code(s): C79.51 - Secondary malignant neoplasm of bone Status: Acute (2) Hypercalcemia Code(s): E83.52 - Hypercalcemia Status: Acute - Plan 63-year-old woman who presents with back pain and was found to have multiple lytic lesions in the lumbar, sacral, thoracic spine and calvarium. She also has anemia with normal renal function. Differential diagnosis include a plasma cell dyscrasia/multiple myeloma versus metastatic carcinoma. Bone biopsy was performed. Recommendations regarding treatment depends on the result of the biopsy. Serum protein electrophoresis and immunofixation are still pending. Her course is complicated by hypercalcemia. This has improved with IV fluid hydration. She would benefit from bisphosphonate therapy. Hypercalcemia persist with a calcium of 11.1. Renal function is normal. 1. Pathology pending 2. Pamidronate for hypercalcemia 3. Optimize pain control 4. Monitor anemia 5. Follow-up on outpatient basis with Dr. Marks.
[2018-08-06] MEDS ORDERED: Pamidronate Inj 60 MG in Sodium Chlor 0.9% Inj 500 ML IV.SIG ONE ×2 (19:00→21:00)
[2018-08-07 07:01] LABS: Chloride 106 meq/L (98-107); Potassium 3.7 meq/L (3.5-5.1); Sodium 142 meq/L (136-145)
[2018-08-07 07:07] LABS: Albumin 2.9 g/dL (3.4-5.0); Calcium 11.5 mg/dL (8.5-10.1)
[2018-08-07 07:08] LABS: Anion Gap 5 meq/L (5-15); Blood Urea Nitrogen 11 mg/dL (7-18); Carbon Dioxide 30.8 meq/L (21.0-32.0); Glucose,Random 79 mg/dL (74-106)
[2018-08-07 07:11] LABS: Alanine Aminotransferase 15 U/L (10-53); Aspartate Aminotransferase 18 U/L (15-37); Glomerular Filtration Rate 50 mL/min (>89)
[2018-08-07 07:12] LABS: Total Protein 5.8 g/dL (6.4-8.2)
[2018-08-07 07:14] LABS: Alkaline Phosphatase 86 U/L (45-117)
[2018-08-07] MEDS: Sod Chloride 0.9% Inj 1,000 ML IV.CONT SCH ×2 (07:59→18:23)
--- NOTE | 2018-08-07 10:27 | P.PNIM ---
Subjective Interval history: Follow-up severe hypercalcemia/suspected metastatic disease to the brain and spine August 07, 2018patient seen and examined, denies any significant improvement of pain. Had bone marrow biopsy done yesterday. Physical Exam Vital signs: Vital Signs 08/06/18 11:45 08/06/18 12:00 08/06/18 12:30 Temperature 97.7 F Pulse Rate 83 82 80 Respiratory Rate 14 15 15 Blood Pressure 140/69 123/63 117/60 Pulse Oximetry 95 100 95 08/06/18 13:00 08/06/18 17:09 08/06/18 20:00 Temperature 97.8 F 98.5 F 97.7 F Pulse Rate 80 87 84 Respiratory Rate 16 16 16 Blood Pressure 120/69 129/60 139/68 Pulse Oximetry 94 L 94 L 90 L 08/07/18 00:00 08/07/18 04:00 08/07/18 07:49 Temperature 96.7 F L 97.4 F L 98.6 F Pulse Rate 82 77 85 Respiratory Rate 16 16 20 Blood Pressure 132/57 L 102/74 149/68 H Pulse Oximetry 94 L 96 90 L 08/07/18 08:00 Temperature Pulse Rate 75 Respiratory Rate Blood Pressure Pulse Oximetry Intake & Output 08/06/18 08/07/18 08/07/18 18:59 06:59 18:59 Intake Total 2820 / 2820 1000 / 1000 920 / 920 Balance 2820 / 2820 1000 / 1000 920 / 920 Weight 60.4 kg Intake: IV 1920 / 1920 520 / 520 920 / 920 NS Inj 1,000 ML @ 100 mls/hr IV 1920 / 1920 920 / 920 .CONT .Q10H [facility] Rx#:[id number] [place] Inj 60 MG In NS Inj 500 520 / 520 ML @ 130 mls/hr IV.SIG ONCE ONE Rx#:[id number] Oral 900 / 900 Oral Supplement 480 / 480 Other: # Voids 3 2 Narrative: GENERAL: NAD, A&Ox3 HEAD: Normocephalic. NECK: Supple, trachea midline. No lymphadenopathy. EYES: No scleral icterus. No injection or drainage. CARDIOVASCULAR: Regular rate and rhythm without murmurs, gallops, or rubs. RESPIRATORY: Breath sounds equal bilaterally. No accessory muscle use. GASTROINTESTINAL: Abdomen soft, non-tender, nondistended. MUSCULOSKELETAL: No cyanosis, or edema. SKIN: Warm and dry. NEURO: No focal neurological deficits. Results Labs CBC & Chem 7: 08/06/18 05:50 08/07/18 06:27 Imaging Imaging: Impressions Soft Tissue Biopsy 08/06/18 10:00 CONCLUSION: 1. Uncomplicated CT guided biopsy. Assessment and Plan (1) Metastatic cancer to bone: Code(s): C79.51 - Secondary malignant neoplasm of bone Status: Acute (2) Hypercalcemia: Code(s): E83.52 - Hypercalcemia Status: Acute Plan 63-year-old female with Severe hypercalcemia May be of neoplastic etiology Monitor calcium level and continue with IV hydration s/p pamidronate 08/06/18 PTH is within normal limits Appreciate input from pulmonary medicine Suspect metastatic disease at brain Suspect metastatic disease at spine CT scan of chest, abdomen, pelvis shows further spinal involvement, no thorax/ abdomen/pelvis space masses identified s/p bone marrow biopsy August 06, 2018 ending pathology report Appreciate input from oncology As needed pain treatment DVT prophylaxis SCDs Progress Note: Quality VTE Deep Vein Thrombosis/Pulmonary Embolism Present on Admission: No
[2018-08-08] MEDS: Sod Chloride 0.9% Inj 1,000 ML IV.CONT SCH (03:50)
[2018-08-08 06:41] LABS: Chloride 103 meq/L (98-107); Potassium 3.4 meq/L (3.5-5.1); Sodium 140 meq/L (136-145)
[2018-08-08 06:45] LABS: Albumin 3.1 g/dL (3.4-5.0); Anion Gap 7 meq/L (5-15); Calcium 10.8 mg/dL (8.5-10.1); Carbon Dioxide 30.4 meq/L (21.0-32.0)
[2018-08-08 06:46] LABS: Blood Urea Nitrogen 10 mg/dL (7-18); Glucose,Random 80 mg/dL (74-106)
[2018-08-08 06:49] LABS: Alanine Aminotransferase 24 U/L (10-53); Aspartate Aminotransferase 30 U/L (15-37); Glomerular Filtration Rate 56 mL/min (>89)
[2018-08-08 06:50] LABS: Total Protein 6.6 g/dL (6.4-8.2)
[2018-08-08 06:51] LABS: Alkaline Phosphatase 114 U/L (45-117)
--- NOTE | 2018-08-08 09:36 | P.PNIM ---
Subjective Interval history: follow up hypercalcemia/lytic bone lesion 08/08/18-patient seen and examined; still with pain in right shoulder and lower back; calcium improving Physical Exam Vital signs: Vital Signs 08/07/18 12:00 08/07/18 16:00 08/07/18 19:45 Temperature 98.8 F 100.2 F H Pulse Rate 96 H 88 Respiratory Rate 18 20 20 Blood Pressure 127/59 L 133/64 Pulse Oximetry 91 L 96 08/07/18 20:00 08/08/18 00:00 08/08/18 00:41 Temperature 100.1 F H 98.2 F Pulse Rate 101 H 83 Respiratory Rate 20 20 20 Blood Pressure 130/71 138/73 Pulse Oximetry 95 96 08/08/18 04:00 Temperature 98.7 F Pulse Rate 92 H Respiratory Rate 20 Blood Pressure 121/71 Pulse Oximetry 96 Intake & Output 08/07/18 08/08/18 08/08/18 18:59 06:59 18:59 Intake Total 2400 / 2400 1000 / 1000 Balance 2400 / 2400 1000 / 1000 Weight 85.1 kg Intake: IV 1920 / 1920 1000 / 1000 NS Inj 1,000 ML @ 100 mls/hr IV 1920 / 1920 1000 / 1000 .CONT .Q10H [facility] Rx#:[id number] Oral 480 / 480 Other: # Voids 6 5 Narrative: GENERAL: NAD, A&Ox3 HEAD: Normocephalic. NECK: Supple, trachea midline. No lymphadenopathy. EYES: No scleral icterus. No injection or drainage. CARDIOVASCULAR: Regular rate and rhythm without murmurs, gallops, or rubs. RESPIRATORY: Breath sounds equal bilaterally. No accessory muscle use. GASTROINTESTINAL: Abdomen soft, non-tender, nondistended. MUSCULOSKELETAL: No cyanosis, or edema. SKIN: Warm and dry. NEURO: No focal neurological deficits. Results Labs CBC & Chem 7: 08/06/18 05:50 08/08/18 05:40 Assessment and Plan (1) Metastatic cancer to bone: Code(s): C79.51 - Secondary malignant neoplasm of bone Status: Acute (2) Hypercalcemia: Code(s): E83.52 - Hypercalcemia Status: Acute Plan 63-year-old female with Severe hypercalcemia-resolving May be of neoplastic etiology Monitor calcium level and continue with IV hydration s/p pamidronate 08/06/18 PTH is within normal limits Appreciate input from pulmonary medicine Suspect metastatic disease at brain Suspect metastatic disease at spine CT scan of chest, abdomen, pelvis shows further spinal involvement, no thorax/ abdomen/pelvis space masses identified s/p bone marrow biopsy August 06, 2018 ending pathology report Appreciate input from oncology As needed pain treatment DVT prophylaxis SCDs Progress Note: Quality VTE Deep Vein Thrombosis/Pulmonary Embolism Present on Admission: No
--- NOTE | 2018-08-08 09:39 | P.DS ---
DS: Providers Date of admission: 08/04/18 16:33 Primary care physician: No Primary Care Physician Consults: 08/04/18 16:24 Consult to Oncology Routine Consulting Provider: Marcy Bishop Reason for Consultation: Metastatic Disease at Brain and Lumbar Spine, source not yet known, with Severe Hypercalcemia. Notified:: Service Spoke with:: ALBERTO Date Notified:: 08/04/18 Time Notified:: 16:48 Comments:: PT20 Ordering Provider: SIOMARA Brief History from admission: Mrs. Singleton is a 63-year-old female. She came in the hospital secondary to back pain and weakness. She noticed back pain when she was lifting food trays. Lab work shows hypercalcemia. Imaging has been obtained of the back and the brain. She has evidence of metastatic disease to the lumbar spine and the brain. Neoplastic etiology is likely the cause for her hypercalcemia. Patient at baseline only has chronic vertigo. No other known medical problems. She does report that her father had liver cancer and her mother had pancreatic cancer. She has no past history of smoking. She did have some smoke exposure as a child because her parents smoked. She does report that she has drank alcohol heavily in the past. She is not been drinking alcohol since June 18, 2018. Before this she was drinking about 1 bottle of wine daily. When we discussed her bowel movements she reports that she has been suffering with constipation and harder stools and had not had this problem previously. This could represent colon masses in etiology. Further imaging is pending. No complaints of pain. No other complaints tonight. DS: Diagnosis Discharge Diagnosis (1) Metastatic cancer to bone: Status: Acute (2) Hypercalcemia: Status: Acute DS: Summary While in the hospital, the patient was treated for: Severe hypercalcemia-resolving May be of neoplastic etiology Monitor calcium level s/p pamidronate 08/06/18 and treated with IVF hydration PTH is within normal limits Appreciate input from pulmonary medicine Suspect metastatic disease at brain Suspect metastatic disease at spine CT scan of chest, abdomen, pelvis shows further spinal involvement, no thorax/ abdomen/pelvis space masses identified s/p bone marrow biopsy August 06, 2018 pending pathology report Appreciate input from oncology As needed pain treatment DVT prophylaxis SCDs Time Spent with Patient Total time spent providing and/or coordinating discharge services: Quality: VTE Deep Vein Thrombosis/Pulmonary Embolism Present on Admission: No Exam Narrative Exam Narrative: GENERAL: NAD SKIN: Warm and dry. HEAD: Atraumatic. Normocephalic. EYES: Pupils equal and round. No scleral icterus. No injection or drainage. ENT: No nasal bleeding or discharge. Mucous membranes pink and moist. NECK: Trachea midline. No JVD. CARDIOVASCULAR: Regular rate and rhythm. RESPIRATORY: No accessory muscle use. Clear to auscultation. Breath sounds equal bilaterally. GASTROINTESTINAL: Abdomen soft, non-tender, nondistended. Hepatic and splenic margins not palpable. MUSCULOSKELETAL: Extremities without clubbing, cyanosis, or edema. No obvious deformities. NEUROLOGICAL: Awake and alert. No obvious cranial nerve deficits. Motor grossly within normal limits. Five out of 5 muscle strength in the arms and legs. Normal speech. PSYCHIATRIC: Appropriate mood and affect; insight and judgment normal. Results Procedures completed during hospitalization: bone marrow biopsy Labs on day of discharge: Labs from last 24 hours 08/08/18 05:40 Sodium 140 Potassium 3.4 L Chloride 103 Carbon Dioxide 30.4 Anion Gap 7 BUN 10 Creatinine 1.00 Estimated GFR 56 L Random Glucose 80 Calcium 10.8 H Total Bilirubin 0.4 AST 30 ALT 24 Alkaline Phosphatase 114 Total Protein 6.6 D Albumin 3.1 L Impressions ITS Impressions Chest CT 08/04/18 00:00 CONCLUSION: 1. Widespread bony metastatic disease or myeloma with a lytic lesion at T10 on the right side resulting in at least moderate canal stenosis and mild to moderate cord compression. 2. No adenopathy or suspicious lung mass identified. Lumbar Spine CT 08/04/18 13:32 CONCLUSION: 1. Widespread lytic bony destructive change in the lower thoracic spine, lumbar spine and sacrum and pelvis. There are associated soft tissue masses on the right side at L2 and S1 measuring up to 2.5 cm in diameter which may be impinging on the adjacent nerve roots. Head CT 08/04/18 13:37 CONCLUSION: 1. Numerous lytic calvarial lesions most characteristic of myeloma or metastatic disease. Larger lytic lesion in the right frontal bone is associated with a soft tissue mass measuring about 12 mm extending into the extra-axial space on the right but without significant mass effect. . . Abdomen/Pelvis CT 08/04/18 17:45 CONCLUSION: 1. Widespread lytic bone destruction in the skeleton as above characteristic of metastatic disease or myeloma. Associated soft tissue masses on the right side at L2 and S1 may be impinging on the adjacent nerve roots. 2. No visceral mass identified within the abdomen and pelvis. Mild constipation. No abdominal or pelvic adenopathy identified. Soft Tissue Biopsy 08/06/18 10:00 CONCLUSION: 1. Uncomplicated CT guided biopsy. Discharge Plan Discharge Disposition Patient Disposition: Discharge Home Discharge Condition Condition: Stable Discharge Order Discharge Orders: Discharge Order (Routine); Ordered 08/08/18 Ordered By: Christopher Soares Physicians Team ED Provider: Dre Farmer Primary Care Provider: Primary Kaur Espinosa Attending Provider: Christopher Soares Other Providers: Marcy Bishop Rxs /Orders / Referrals /Forms Prescriptions: New hydrocodone-acetaminophen [[place]] 7.5-325 mg tablet 1 tab PO Q4-6H PRN (Reason: Acute Pain Exception) Qty: 30 RF: 0 No Action prednisone 5 mg Tablets,Dose Pack 5 mg PO PER PKG DIR RF: 0 Referrals: NONE [Other] - See Instructions Primary Care Kaur Nova [Primary Care Provider] - See Instructions Status ED Status: Left Department
[2018-08-08 10:04] VITALS: BP 140/77; PULSE 93; TEMP 98.9; O2SAT 97
[2018-08-08 10:48] VITALS: RESP 19
== END 2018-08-08 11:04 | disposition home or self-care (01) | DRG 825 ==
LOC: PHED 13:14 → PHEDA 16:33 → PH3 17:49
PROVIDERS: ADMIT Hospitalist; ATTEND Hospitalist
CPT/HCPCS: 20206; 70450; 71260; 72131; 74177; 80048; 80053; 82040; 82306; 82652; 82784; 83615; 83735; 83883; 83970; 84100; 84165; 85025; 85610; 85730; 86334; 88305; 88311; 88341; 88342; 88343; 90761; 90774; 96361; 96374; 99145; 99152; 99153; 99285; C8952; G0461; G0462; J2250; J2430; J2930; J3010; J7030; J7040; Q9963; Q9967